=== PATIENT | female | born 2005 | race Caucasian/White ===

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

== ENCOUNTER 2025-02-03 16:04 | Emergency (ER) | payer OTHER ==
[~2025-02-03] VITALS: Ht 167.6 cm; Wt 78.5 kg
[2025-02-03 19:03] VITALS: BP 132/79; TEMP 97.4; O2SAT 100
[2025-02-03] MEDS: KETOROLAC 30 MG/ML 1ML VIAL IM ONE (20:15)
[2025-02-03] MEDS: ACETAMINOPHEN 500 MG TAB PO ONE (20:30)
[2025-02-03] MEDS ORDERED: MEDR4PAK PO (21:23)
[2025-02-03] MEDS ORDERED: TIZA4CAP PO (21:23)
== END 2025-02-03 21:30 | disposition home or self-care (01) ==
LOC: M ED 16:04
DX: M54.2 Cervicalgia (principal); M62.838 Other muscle spasm; Z79.899 Other long term (current) drug therapy